=== PATIENT | male | born 1990 | race Hispanic/Latino ===

== ENCOUNTER 2021-09-11 18:50 | Emergency (ER) | payer BC ==
[~2021-09-11] VITALS: Ht 165.1 cm; Wt 80.7 kg
[2021-09-11] MEDS ORDERED: KETOROLAC TROMETHAMINE 60 MG/2 ML VIAL IM ONE (21:00)
[2021-09-11] MEDS ORDERED: DEXAMETHASONE SOD PHOS 10 MG/1 ML VIAL IM ONE (21:15)
[2021-09-11] MEDS ORDERED: CYCLOBENZAPRINE HCL 10 MG TAB PO ONE (21:15)
[2021-09-11] MEDS ORDERED: DEXAMETHASONE SOD PHOS INJ 4 MG/ML SDV ONE (21:47)
[2021-09-11] MEDS ORDERED: CYCLOBENZAPRINE HCL 10 MG TAB ONE (21:47)
[2021-09-11] MEDS ORDERED: KETOROLAC TROMETHAMINE 60 MG/2 ML VIAL ONE (21:47)
[2021-09-11] MEDS ORDERED: NAPROSYN500 MG PO (22:29)
[2021-09-11] MEDS ORDERED: METHOCARBAMOL750 MG PO (22:35)
[2021-09-11] MEDS ORDERED: ULTRAM 50MG50 MG PO (22:36)
== END 2021-09-11 23:16 | disposition home or self-care (01) ==
LOC: FSED 19:37
DX: S39.012A Strain of muscle, fascia and tendon of lower back, initial encounter (principal); X50.0XXA Overexertion from strenuous movement or load, initial encounter; Y92.008 Other place in unspecified non-institutional (private) residence as the place of occurrence of the external cause; F17.210 Nicotine dependence, cigarettes, uncomplicated
CPT/HCPCS: 72100; 99283; J1100; J1885